=== PATIENT | male | born 1995 | race Caucasian/White ===

== ENCOUNTER 2017-07-11 08:17 | Emergency (ER) | payer OTHER ==
[~2017-07-11] VITALS: Ht 180.3 cm; Wt 90.4 kg
[2017-07-11 08:32] VITALS: BP 150/80; Ht 180.3 cm; Wt 90.4 kg
== END 2017-07-11 11:19 | disposition home or self-care (01) ==
LOC: ED 08:17
DX: B34.9 Viral infection, unspecified (principal)
CPT/HCPCS: J7613; J7644